=== PATIENT | male | born 1980 | race Caucasian/White ===

== ENCOUNTER 2017-10-30 00:48 | Emergency (ER) | payer OTHER ==
[~2017-10-30] VITALS: Ht 182.9 cm; Wt 95.0 kg
[2017-10-30 00:54] VITALS: BP 124/61; PULSE 97; RESP 16; TEMP 97.3; O2SAT 100
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
--- NOTE | 2017-10-30 04:41 | RADRPT ---
EXAM DATE/TIME: 10/30/2017 04:22 [facility] COMPARISON: No previous studies available for comparison. INDICATIONS : Cough. MEDICAL HISTORY : None. SURGICAL HISTORY : None. ENCOUNTER: Initial ACUITY: 1 day PAIN SCORE: 0/10 LOCATION: Bilateral chest FINDINGS: A single view of the chest demonstrates the lungs to be symmetrically aerated without evidence of mas s, infiltrate or effusion. The cardiomediastinal contours are unremarkable. Osseous structures are intact. CONCLUSION: Normal examination. Tae Goldstein Jr., MD on October 30, 2017 at 4:40 Board Certified Radiologist. This report was verified electronically.
[2017-10-30 05:00] LABS: AUTOMATED NEUTROPHIL # 3.6 TH/MM3 (1.8-7.7); BASOPHIL # 0.2 TH/MM3 (0-0.2); EOSINOPHIL % 0.8 % (0.0-4.0); HEMATOCRIT 37.8 % (39.0-51.0); HEMOGLOBIN 13.3 GM/DL (13.0-17.0); LYMPH % 17.8 % (9.0-44.0); MEAN CELL VOLUME 95.2 FL (80.0-100.0); MEAN CORPUSCULAR HEMOGLOBIN 33.5 PG (27.0-34.0); MEAN CORPUSCULAR HGB CONC 35.2 % (32.0-36.0); MEAN PLATELET VOLUME 6.2 FL (7.0-11.0); MONO % 13.4 % (0.0-8.0); MONOCYTE # 0.8 TH/MM3 (0-0.9); PLATELET COUNT 424 TH/MM3 (150-450); RED BLOOD COUNT 3.97 MIL/MM3 (4.50-5.90); RED CELL DISTRIBUTION WIDTH 13.1 % (11.6-17.2); WHITE BLOOD COUNT 5.7 TH/MM3 (4.0-11.0)
[2017-10-30 05:02] VITALS: BP 138/77; PULSE 96; RESP 18; O2SAT 98
[2017-10-30 05:20] LABS: ALBUMIN 3.2 GM/DL (3.4-5.0); ALT (GPT) 104 U/L (12-78); AST (GOT) 81 U/L (15-37); BICARBONATE 27.4 MEQ/L (21.0-32.0); BLOOD UREA NITROGEN 11 MG/DL (7-18); CALCIUM 8.8 MG/DL (8.5-10.1); CHLORIDE 102 MEQ/L (98-107); CREATININE 1.19 MG/DL (0.60-1.30); GLOMERULAR FILTRATION RATE 68 ML/MIN (>89); GLUCOSE,RANDOM 117 MG/DL (74-106); MAGNESIUM 2.2 MG/DL (1.5-2.5); SODIUM (NA) 138 MEQ/L (136-145)
[2017-10-30 05:35] LABS: ALKALINE PHOSPHATASE 74 U/L (45-117); TOTAL BILIRUBIN ADULT 0.3 MG/DL (0.2-1.0); TOTAL PROTEIN 7.2 GM/DL (6.4-8.2); TROPONIN I LESS THAN 0.02 NG/ML (0.02-0.05)
[2017-10-30] MEDS ORDERED: SODIUM CHLOR 0.9% 1000 ML INJ 1,000 ML IV SCH ×2 (05:42)
--- NOTE | 2017-10-30 06:38 | RADRPT ---
EXAM DATE/TIME: 10/30/2017 06:06 [facility] COMPARISON: No previous studies available for comparison. INDICATIONS : Pain in right foot. No known injury. MEDICAL HISTORY : None. SURGICAL HISTORY : None. ENCOUNTER: Initial ACUITY: 1 day PAIN SCORE: 6/10 LOCATION: Right foot FINDINGS: Three view examination of the right foot demonstrates no soft tissue swelling, dislocation, or fractu re. The tarsal bones appear intact. The interphalangeal and metatarsophalangeal joints are intact. The calcaneus is intact. Bony mineralization is normal. CONCLUSION: Unremarkable examination of the right foot. Tae Goldstein Jr., MD on October 30, 2017 at 6:37 Board Certified Radiologist. This report was verified electronically.
[2017-10-30] MEDS ORDERED: ACETAMINOPHEN 325 MG TAB PO ONE (07:30)
[2017-10-30 08:18] LABS: TROPONIN I LESS THAN 0.02 NG/ML (0.02-0.05)
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
--- NOTE | 2017-10-30 09:26 | RADRPT ---
EXAM DATE/TIME: 10/30/2017 09:15 [facility] COMPARISON: No previous studies available for comparison. INDICATIONS : Cephalgia. RADIATION DOSE: 56.35 CTDIvol (mGy) MEDICAL HISTORY : None SURGICAL HISTORY : None. ENCOUNTER: Initial ACUITY: 1 day PAIN SCALE: 2/10 LOCATION: cranial TECHNIQUE: Multiple contiguous axial images were obtained of the head. Using automated exposure control and adj ustment of the mA and/or kV according to patient size, radiation dose was kept as low as reasonably a chievable to obtain optimal diagnostic quality images. DICOM format image data is available electro nically for review and comparison. FINDINGS: L1 cisterns are of normal size and configuration. No signs of intracranial hemorrhage, mass, or infar ct. Review of bone windows demonstrates a scalp laceration in the vertex posteriorly, a right zygomat ic arch fracture, fracture through the antral wall of the right temporomandibular joint, lateral wall , anterior wall and floor of the right orbit. There is circumferential mucosal thickening in the righ t maxillary sinus identified. CONCLUSION: Facial fractures are noted as above. The brain is normal in appearance. Luis Fan MD on October 30, 2017 at 9:23 Board Certified Radiologist. This report was verified electronically.
[2017-10-30] MEDS ORDERED: BACT800T5 PO (09:38)
[2017-10-30] MEDS ORDERED: ERYTOIN10 RIGHT EYE (09:38)
--- NOTE | 2017-10-30 18:17 | EKG ---
Date Performed: 10/30/2017 Time Performed: 04:26:54 PTAGE: 37 years EKG: Sinus rhythm WITH SINUS ARRHYTHMIA POSSIBLE LEFT ATRIAL ENLARGEMENT ST ELEVATION, PROBABLY EARLY REPOLARIZATION B ORDERLINE ECG NO PREVIOUS TRACING DOCTOR: Ashley Terry Interpretating Date/Time 10/30/2017 18:13:14
== END 2017-10-30 11:47 | disposition home or self-care (01) ==
LOC: NEPD 00:48
DX: M62.82 Rhabdomyolysis (principal); R07.9 Chest pain, unspecified; R06.02 Shortness of breath; S91.331A Puncture wound without foreign body, right foot, initial encounter; S02.40ED Zygomatic fracture, right side, subsequent encounter for fracture with routine healing; I49.8 Other specified cardiac arrhythmias; W22.8XXA Striking against or struck by other objects, initial encounter; Y09 Assault by unspecified means; Z48.02 Encounter for removal of sutures
CPT/HCPCS: 70450; 71045; 73630; 80053; 80307; 82550; 82552; 83735; 84484; 85025; 93005; 96360; 99285; J7030

== ENCOUNTER 2017-11-02 05:46 | Emergency (ER) | payer OTHER ==
[~2017-11-02] VITALS: Ht 182.9 cm; Wt 95.0 kg
[~2017-11-02 05:46] MED LIST: BACT800T5 PO; ERYTOIN10 RIGHT EYE
[2017-11-02 05:48] VITALS: BP 153/87; PULSE 101; RESP 16; TEMP 97.5; O2SAT 98
--- NOTE | 2017-11-02 06:48 | PD ---
HPI Chief Complaint: Medical Clearance Time Seen by Provider: 06:16 Travel History International Travel<30 days: No Contact w/Intl Traveler<30days: No Traveled to known affect area: No History of Present Illness HPI 37-year-old male arrives to the ER noting potentially adverse reaction to medication, Bactrim. He goes on to express concern for having negative thinking including negative thoughts of himself and potentially self-harm. Pt lost his job and reports feeling regret and shame secondarily. Denies drug or alcohol abuse. He has no medical complaint aside from insomnia. He reports taking Bactrim for potential scalp wound. Patient was seen here about 7 days ago and was diagnosed with rhabdomyolysis and discharged afterwards. He reports insomnia since. [facility] Social History Alcohol Use: Yes Tobacco Use: Yes Substance Use: Yes Allergies-Medications (Allergen,Severity, Reaction): Coded Allergies: No Known Allergies (Unverified , 11/02/17) Reported Meds & Prescriptions Reported Meds & Active Scripts Active Erythromycin Opth Oint 5 Mg/Gm Oint 1 Applic RIGHT EYE QID Bactrim DS (Sulfamethoxazole-Trimethoprim) 800-160 Mg Tab 1 Tab PO BID Review of Systems Except as stated in HPI: all other systems reviewed are Neg Physical Exam Narrative GENERAL: The patient's 37 years old well-nourished well-developed no acute distress Vital Signs Date Time Temp Pulse Resp B/P (MAP) Pulse Ox O2 Delivery O2 Flow Rate FiO2 11/02/17 05:48 97.5 101 16 153/87 (109) 98 SKIN: Warm and dry. HEAD: Atraumatic. Normocephalic. EYES: Pupils equal and round. No scleral icterus. No injection or drainage. ENT: No nasal bleeding or discharge. Mucous membranes pink and moist. NECK: Trachea midline. No JVD. CARDIOVASCULAR: Tachycardia. Regular rhythm. RESPIRATORY: No accessory muscle use. Clear to auscultation. Breath sounds equal bilaterally. GASTROINTESTINAL: Abdomen soft, non-tender, nondistended. Hepatic and splenic margins not palpable. MUSCULOSKELETAL: Extremities without clubbing, cyanosis, or edema. No obvious deformities. NEUROLOGICAL: Awake and alert. No obvious cranial nerve deficits. Motor grossly within normal limits. Five out of 5 muscle strength in the arms and legs. Normal speech. PSYCHIATRIC: Depressed mood. Cooperative. Denies suicidal/homicidal ideation. Data Data Last Documented VS Vital Signs Date Time Temp Pulse Resp B/P (MAP) Pulse Ox O2 Delivery O2 Flow Rate FiO2 11/02/17 05:48 97.5 101 16 153/87 (109) 98 Orders Orders Psych Screen (11/02/17 06:34) Drug Screen, Random Urine (11/02/17 06:34) Alcohol (Ethanol) (11/02/17 06:34) Basic Metabolic Panel (Bmp) (11/02/17 06:48) Ckmb (Isoenzyme) Profile (11/02/17 06:48) Complete Blood Count With Diff (11/02/17 06:48) Ecg Monitoring (11/02/17 06:48) Iv Access Insert/Monitor (11/02/17 06:48) Sodium Chloride 0.9% Flush (Ns Flush) (11/02/17 07:00) Ns (Bolus) Inj (11/02/17 07:00) MDM Medical Decision Making Medical Screen Exam Complete: Yes Emergency Medical Condition: Yes Medical Record Reviewed: Yes Differential Diagnosis Altered mental status/psychosis due to infection/environmental exposure/ metabolic abnormality, polypharmacy, alcohol abuse/intoxication, illicit or prescribed drug abuse, malingering/secondary gain, non-organic psychiatric disease Narrative Course Psych screen ordered along with routine blood work. Investigation into creatinine kinase and renal indices started. Care turned over to Dr Velarde at 7:00AM. Cecil Almonte MD Nov 02, 2017 06:48
[2017-11-02] MEDS ORDERED: SODIUM CHLORIDE 0.9% FLUSH 10 ML FLUSH IVF PRN (07:00)
[2017-11-02] MEDS ORDERED: SODIUM CHLOR 0.9% 1000 ML INJ 1,000 ML IV ONE (07:00)
[2017-11-02 07:11] LABS: AUTOMATED NEUTROPHIL # 5.2 TH/MM3 (1.8-7.7); BASOPHIL % 0.5 % (0.0-2.0); EOSINOPHIL % 0.2 % (0.0-4.0); HEMATOCRIT 37.3 % (39.0-51.0); HEMOGLOBIN 12.8 GM/DL (13.0-17.0); LYMPH % 15.3 % (9.0-44.0); MEAN CELL VOLUME 93.9 FL (80.0-100.0); MEAN CORPUSCULAR HEMOGLOBIN 32.3 PG (27.0-34.0); MEAN CORPUSCULAR HGB CONC 34.4 % (32.0-36.0); MEAN PLATELET VOLUME 6.3 FL (7.0-11.0); MONOCYTE # 0.5 TH/MM3 (0-0.9); PLATELET COUNT 446 TH/MM3 (150-450); RED BLOOD COUNT 3.97 MIL/MM3 (4.50-5.90); WHITE BLOOD COUNT 6.8 TH/MM3 (4.0-11.0)
[2017-11-02 07:36] LABS: CALCIUM 8.8 MG/DL (8.5-10.1); CREATININE 1.24 MG/DL (0.60-1.30)
[2017-11-02 09:43] VITALS: BP 145/68; PULSE 100; RESP 22; O2SAT 99
[2017-11-02 11:39] LABS: TROPONIN I 0.02 NG/ML (0.02-0.05)
--- NOTE | 2017-11-02 12:12 | PD ---
Physical Exam Date Seen by Provider: Nov 02, 2017 Time Seen by Provider: 07:00 Narrative Patient seen initially by Dr. Almonte, please see his notes for further details. He has signed out lab work to me awaiting psychiatric evaluation voluntarily for suicidal thoughts. However, patient is denying suicidal thoughts now. He has been evaluated by psychiatry nurse and he has had substance use issues. Has had some social issues as well. His lab work shows rhabdomyolysis which appears to be improving. A second set of enzymes are also done which shows an improving CPK. His metabolic panel was fairly unremarkable otherwise and renal function was normal. Patient is reevaluated in the ER at 11 :30 AM and is drinking fluids, feeling fine, and this point, my plan would be to medically clear him for further psychiatric evaluation. He should drink plenty of fluids to get rid of the muscle breakdown products. Patient was seen by psychiatry in the ER and then cleared from a psychiatric standpoint as well. Family is fairly supportive and apparently is coming to product picker the patient to take care of him as well. He should return for any further issues, suicidal ideation, homicidal ideation, or new symptoms as needed. Data Data Last Documented VS Vital Signs Date Time Temp Pulse Resp B/P (MAP) Pulse Ox O2 Delivery O2 Flow Rate FiO2 11/02/17 09:43 100 22 145/68 (93) 99 Room Air 11/02/17 05:48 97.5 Orders Orders Psych Screen (11/02/17 06:34) Drug Screen, Random Urine (11/02/17 06:34) Alcohol (Ethanol) (11/02/17 06:34) Basic Metabolic Panel (Bmp) (11/02/17 06:48) Ckmb (Isoenzyme) Profile (11/02/17 06:48) Complete Blood Count With Diff (11/02/17 06:48) Ecg Monitoring (11/02/17 06:48) Iv Access Insert/Monitor (11/02/17 06:48) Sodium Chloride 0.9% Flush (Ns Flush) (11/02/17 07:00) Sodium Chlor 0.9% 1000 Ml Inj (Ns 1000 M (11/02/17 07:00) CKMB (11/02/17 06:45) CKMB% (11/02/17 06:45) Creatine Kinase (Cpk) (11/02/17 10:36) Ckmb (Isoenzyme) Profile (11/02/17 10:36) Troponin I (11/02/17 10:36) CKMB (11/02/17 11:00) CKMB% (11/02/17 11:00) Ed Discharge Order (11/02/17 12:54) Labs Laboratory Tests Test 11/02/17 06:43 11/02/17 06:45 11/02/17 06:58 11/02/17 11:00 Urine Opiates Screen NEG Urine Barbiturates Screen NEG Urine Amphetamines Screen NEG Urine Benzodiazepines Screen NEG Urine Cocaine Screen NEG Urine Cannabinoids Screen POS Blood Urea Nitrogen 11 MG/DL Creatinine 1.24 MG/DL Random Glucose 91 MG/DL Calcium Level 8.8 MG/DL Sodium Level 135 MEQ/L Potassium Level 4.0 MEQ/L Chloride Level 98 MEQ/L Carbon Dioxide Level 27.0 MEQ/L Anion Gap 10 MEQ/L Estimat Glomerular Filtration Rate 65 ML/MIN Total Creatine Kinase 1970 U/L 1520 U/L Creatine Kinase MB 5.7 NG/ML 4.6 NG/ML Creatine Kinase MB % 0.3 % 0.3 % Ethyl Alcohol Level LESS THAN 3 MG/DL White Blood Count 6.8 TH/MM3 Red Blood Count 3.97 MIL/MM3 Hemoglobin 12.8 GM/DL Hematocrit 37.3 % Mean Corpuscular Volume 93.9 FL Mean Corpuscular Hemoglobin 32.3 PG Mean Corpuscular Hemoglobin Concent 34.4 % Red Cell Distribution Width 13.0 % Platelet Count 446 TH/MM3 Mean Platelet Volume 6.3 FL Neutrophils (%) (Auto) 77.0 % Lymphocytes (%) (Auto) 15.3 % Monocytes (%) (Auto) 7.0 % Eosinophils (%) (Auto) 0.2 % Basophils (%) (Auto) 0.5 % Neutrophils # (Auto) 5.2 TH/MM3 Lymphocytes # (Auto) 1.0 TH/MM3 Monocytes # (Auto) 0.5 TH/MM3 Eosinophils # (Auto) 0.0 TH/MM3 Basophils # (Auto) 0.0 TH/MM3 CBC Comment DIFF FINAL Differential Comment Troponin I 0.02 NG/ML [facility] Medical Record Reviewed: Yes Supervised Visit with HERI: No Diagnosis Primary Impression: Psychological assessment Additional Impression: Rhabdomyolysis Disposition: 01 DISCHARGE HOME Condition: Stable Tyrel Kim MD Nov 02, 2017 12:11
--- NOTE | 2017-11-02 12:57 | PD ---
Physical Exam Date Seen by Provider: Nov 02, 2017 Time Seen by Provider: 12:54 Narrative For full history and physical examination please see previous providers note. Data Data Last Documented VS Vital Signs Date Time Temp Pulse Resp B/P (MAP) Pulse Ox O2 Delivery O2 Flow Rate FiO2 11/02/17 09:43 100 22 145/68 (93) 99 Room Air 11/02/17 05:48 97.5 Orders Orders Psych Screen (11/02/17 06:34) Drug Screen, Random Urine (11/02/17 06:34) Alcohol (Ethanol) (11/02/17 06:34) Basic Metabolic Panel (Bmp) (11/02/17 06:48) Ckmb (Isoenzyme) Profile (11/02/17 06:48) Complete Blood Count With Diff (11/02/17 06:48) Ecg Monitoring (11/02/17 06:48) Iv Access Insert/Monitor (11/02/17 06:48) Sodium Chloride 0.9% Flush (Ns Flush) (11/02/17 07:00) Sodium Chlor 0.9% 1000 Ml Inj (Ns 1000 M (11/02/17 07:00) CKMB (11/02/17 06:45) CKMB% (11/02/17 06:45) Creatine Kinase (Cpk) (11/02/17 10:36) Ckmb (Isoenzyme) Profile (11/02/17 10:36) Troponin I (11/02/17 10:36) CKMB (11/02/17 11:00) CKMB% (11/02/17 11:00) Ed Discharge Order (11/02/17 12:54) Labs Laboratory Tests Test 11/02/17 06:43 11/02/17 06:45 11/02/17 06:58 11/02/17 11:00 Urine Opiates Screen NEG Urine Barbiturates Screen NEG Urine Amphetamines Screen NEG Urine Benzodiazepines Screen NEG Urine Cocaine Screen NEG Urine Cannabinoids Screen POS Blood Urea Nitrogen 11 MG/DL Creatinine 1.24 MG/DL Random Glucose 91 MG/DL Calcium Level 8.8 MG/DL Sodium Level 135 MEQ/L Potassium Level 4.0 MEQ/L Chloride Level 98 MEQ/L Carbon Dioxide Level 27.0 MEQ/L Anion Gap 10 MEQ/L Estimat Glomerular Filtration Rate 65 ML/MIN Total Creatine Kinase 1970 U/L 1520 U/L Creatine Kinase MB 5.7 NG/ML 4.6 NG/ML Creatine Kinase MB % 0.3 % 0.3 % Ethyl Alcohol Level LESS THAN 3 MG/DL White Blood Count 6.8 TH/MM3 Red Blood Count 3.97 MIL/MM3 Hemoglobin 12.8 GM/DL Hematocrit 37.3 % Mean Corpuscular Volume 93.9 FL Mean Corpuscular Hemoglobin 32.3 PG Mean Corpuscular Hemoglobin Concent 34.4 % Red Cell Distribution Width 13.0 % Platelet Count 446 TH/MM3 Mean Platelet Volume 6.3 FL Neutrophils (%) (Auto) 77.0 % Lymphocytes (%) (Auto) 15.3 % Monocytes (%) (Auto) 7.0 % Eosinophils (%) (Auto) 0.2 % Basophils (%) (Auto) 0.5 % Neutrophils # (Auto) 5.2 TH/MM3 Lymphocytes # (Auto) 1.0 TH/MM3 Monocytes # (Auto) 0.5 TH/MM3 Eosinophils # (Auto) 0.0 TH/MM3 Basophils # (Auto) 0.0 TH/MM3 CBC Comment DIFF FINAL Differential Comment Troponin I 0.02 NG/ML [facility] Medical Record Reviewed: Yes Supervised Visit with HERI: Yes Procedures Procedure Narrative Patient was seen and evaluated by psychiatric nurse practitioner. He was not felt to be a harm to himself or anyone else. Patient was requesting alcohol detox. He was given verbal and written information regarding programs available. Patient is to follow-up with [facility]. Patient stable for discharge. Diagnosis Primary Impression: Psychological assessment Additional Impression: Rhabdomyolysis Qualified Codes: M62.82 - Rhabdomyolysis Referrals: [facility] day Patient Instructions: Alcohol Dependence (ED), General Instructions, Rhabdomyolysis (ED) Additional Instruction: Follow-up with [facility] Increase oral fluid intake Follow-up with your primary doctor Return to emergency department for any new or worsening symptoms Med/Other Pt SpecificInfo: No Change to Meds Disposition: 01 DISCHARGE HOME Condition: Stable DanishLore sextonJanessa ARNP Nov 02, 2017 12:57
--- NOTE | 2017-11-02 13:03 | PD ---
History of Present Illness Chief Complaint: Medical Clearance Time Seen by Provider: 12:45 Travel History International Travel<30 Days: No Contact w/Intl Traveler<30days: No Known affected area: No Legal Status Legal Status: Voluntary History of Present Illness: History of Present Illness HPI 37-year-old with no previous psychiatric history male arrives to the ER noting potentially adverse reaction to medication, Bactrim. ED provider note is reviewed and partially included here in this report; " He goes on to express concern for having negative thinking including negative thoughts of himself and potentially self-harm. Pt lost his job and reports feeling regret and shame secondarily. Denies drug or alcohol abuse. He has no medical complaint aside from insomnia. He reports taking Bactrim for potential scalp wound. Patient was seen here about 7 days ago and was diagnosed with rhabdomyolysis and discharged afterwards. He reports insomnia since." EMR reviewed. Positive toxicology for cannabinoids. Undetectable alcohol level. Patient is seen. Adonis, case sealer present. Patient is alert, oriented, engaging. He states " my mama wants me to get some help. She wants me to do the right thing by my family and that I stop drinking alcohol. I'm trying to have a better life." Patient speech is overinclusive and he requires redirection. He is requesting help with his alcohol use although he minimizes it. He reports that he drinks 1-2 beers a day. He goes on to state that his mother wants him to be in treatment and he is waiting for his mother to pick him up and take him to a treatment facility. There is no psychosis, no joe, no hypomania. Patient does not present any suicidal or homicidal ideation, intent or plan. Psychiatric History Psychiatric History Hx Psychiatric Treatment: Patient states he saw a psychiatrist when he was 16, and was put on [place], but he denies that he has any substance abuse history. However, his mother states he has had multiple admissions for substance abuse, and no psychiatry admissions or history. History of Inpatient Treatment: No Guns or firearms in home: No Social History Hx Alcohol Use: Yes Hx Tobacco Use: Yes Hx Substance Use: Yes Other Substances Used: Per Mother patient has substance abuse hx unknown what substances. Hx of Substance Use Treatment: Yes Family Psychiatric History Father with reported use of alcohol. Allergies-Medications (Allergen,Severity, Reaction): Coded Allergies: No Known Allergies (Unverified , 11/02/17) Reported Meds & Prescriptions Reported Meds & Active Scripts Active Erythromycin Opth Oint 5 Mg/Gm Oint 1 Applic RIGHT EYE QID Bactrim DS (Sulfamethoxazole-Trimethoprim) 800-160 Mg Tab 1 Tab PO BID Review of Systems Psychiatric: DENIES: Anxiety, Confusion, Mood changes, Depression, Hallucinations, Agitation, Suicidal Ideation, Homicidal Ideation, Delusions Mental Status Examination Appearance: Appropriate Consciousness: Alert Orientation: x4 Motor Activity: Normal gait Speech: Unremarkable Language: Adequate Fund of Knowledge: Adequate Attention and Concentration: Easily Distracted Memory: Unremarkable Mood: Appropriate Affect: Appropriate Thought Process & Associations: Intact, Logical, Goal directed Thought Content: Appropriate Hallucination Type: None Delusion Type: None Suicidal Ideation: No Suicidal Plan: No Suicidal Intention: No Homicidal Ideation: No Homicidal Plan: No Homicidal Intention: No Insight: Fair Judgment: Adequate MDM Medical Decision Making Medical Record Reviewed: Yes Assessment/Plan 38-year-old male with history of alcohol abuse who presents to the ED on a voluntary basis for evaluation for possible medication side effect and reporting to staff that he was having negative thoughts. The patient was monitored in ED and presented no behavioral concerns no suicidality. The patient does not present any psychosis, no joe. No suicidal or homicidal ideation. He is wanting treatment for his alcohol use and is waiting for his mother to pick him up and bring him to a substance abuse treatment facility. He is future oriented. Does not meet criteria for inpatient psychiatric treatment as he is requesting treatment for alcohol abuse. Psychiatric clear to be discharge from the ED Orders Orders Psych Screen (11/02/17 06:34) Drug Screen, Random Urine (11/02/17 06:34) Alcohol (Ethanol) (11/02/17 06:34) Basic Metabolic Panel (Bmp) (11/02/17 06:48) Ckmb (Isoenzyme) Profile (11/02/17 06:48) Complete Blood Count With Diff (11/02/17 06:48) Ecg Monitoring (11/02/17 06:48) Iv Access Insert/Monitor (11/02/17 06:48) Sodium Chloride 0.9% Flush (Ns Flush) (11/02/17 07:00) Sodium Chlor 0.9% 1000 Ml Inj (Ns 1000 M (11/02/17 07:00) CKMB (11/02/17 06:45) CKMB% (11/02/17 06:45) Creatine Kinase (Cpk) (11/02/17 10:36) Ckmb (Isoenzyme) Profile (11/02/17 10:36) Troponin I (11/02/17 10:36) CKMB (11/02/17 11:00) CKMB% (11/02/17 11:00) Ed Discharge Order (11/02/17 12:54) Results Vital Signs Date Time Temp Pulse Resp B/P (MAP) Pulse Ox O2 Delivery O2 Flow Rate FiO2 11/02/17 09:43 100 22 145/68 (93) 99 Room Air 11/02/17 05:48 97.5 101 16 153/87 (109) 98 Laboratory Tests Test 11/02/17 06:43 11/02/17 06:45 11/02/17 06:58 11/02/17 11:00 Urine Opiates Screen NEG Urine Barbiturates Screen NEG Urine Amphetamines Screen NEG Urine Benzodiazepines Screen NEG Urine Cocaine Screen NEG Urine Cannabinoids Screen POS Blood Urea Nitrogen 11 Creatinine 1.24 Random Glucose 91 Calcium Level 8.8 Sodium Level 135 Potassium Level 4.0 Chloride Level 98 Carbon Dioxide Level 27.0 Anion Gap 10 Estimat Glomerular Filtration Rate 65 Total Creatine Kinase 1970 1520 Creatine Kinase MB 5.7 4.6 Creatine Kinase MB % 0.3 0.3 Ethyl Alcohol Level LESS THAN 3 White Blood Count 6.8 Red Blood Count 3.97 Hemoglobin 12.8 Hematocrit 37.3 Mean Corpuscular Volume 93.9 Mean Corpuscular Hemoglobin 32.3 Mean Corpuscular Hemoglobin Concent 34.4 Red Cell Distribution Width 13.0 Platelet Count 446 Mean Platelet Volume 6.3 Neutrophils (%) (Auto) 77.0 Lymphocytes (%) (Auto) 15.3 Monocytes (%) (Auto) 7.0 Eosinophils (%) (Auto) 0.2 Basophils (%) (Auto) 0.5 Neutrophils # (Auto) 5.2 Lymphocytes # (Auto) 1.0 Monocytes # (Auto) 0.5 Eosinophils # (Auto) 0.0 Basophils # (Auto) 0.0 CBC Comment DIFF FINAL Differential Comment Troponin I 0.02 Diagnosis Primary Impression: Alcohol abuse Additional Impressions: Psychological assessment Rhabdomyolysis Psychiatrically Cleared: Yes Referrals: [facility] day Patient Instructions: General Instructions, Rhabdomyolysis (ED), Alcohol Dependence (ED) Additional Instructions: Follow-up with [facility] Increase oral fluid intake Follow-up with your primary doctor Return to emergency department for any new or worsening symptoms Disposition: 01 DISCHARGE HOME Condition: Stable Problem Qualifiers Additional Impressions: Rhabdomyolysis Qualified Codes: M62.82 - Rhabdomyolysis Kirsty Velazquez Nov 02, 2017 13:02
== END 2017-11-02 18:44 | disposition home or self-care (01) ==
LOC: NEPE 05:46 → NEPI 18:44
DX: M62.82 Rhabdomyolysis (principal); F10.10 Alcohol abuse, uncomplicated; R00.0 Tachycardia, unspecified; Z72.0 Tobacco use
CPT/HCPCS: 80048; 80307; 82550; 82552; 84484; 85025; 96360; 99284; J7030